=== PATIENT | male | born 1975 | race Caucasian/White ===

== ENCOUNTER → 2016-09-18 | Outpatient (CLI) | payer BC ==
--- NOTE | ~2016-09-18 | CR63 ---
[facility] A Service of [facility] & [facility] RADIOLOGY TEXT RESULTS PATIENT: LUCIAN MCDANIEL LOCATION: [facility] : 77 UNIT #: [id number] AGE: [address]: Cynthia Gatica MD SEX: M ORDER DR: [id number] [facility] [address] [place], [place] [address] [id number] O MR#: [id number] Acc #: [id number] NAME: LUCIAN MCDANIEL : 1975 SEX: M STUDY DATE/TIME: 09/18/2016 9:42 UNIT: [facility] ROOM: STUDY DESCRIPTION: CR Chest 2 View Attending Physician: Cynthia Gatica M.D. Referring Physician: Cynthia Gatica M.D. Ordering Physician: Cynthia Gatica M.D. Primary Care Physician: Cynthia Gatica M.D. MEDICAL IMAGING REPORT This report is preliminary unless electronic signature is present EXAM PA and lateral chest radiograph, 09/18/2016 COMPARISON History supplied cough and congestion 3 months. History of COPD. FINDINGS PA and lateral views of the chest are obtained. There are no previous studies for comparison. The heart size is normal and the lungs appear clear. CONCLUSION No active disease. Dictated by... Cedric Kan M.D. THIS IS AN ELECTRONICALLY VERIFIED REPORT Cedric Kan M.D. at 09/18/2016 5:06 PM Nidhi TD: 09/18/2016 15:16 JOB #: [id number] MEDICAL IMAGING REPORT COPY
== END | disposition home or self-care (01) ==
LOC: CRAD 09:36
DX: J44.9 Chronic obstructive pulmonary disease, unspecified (principal)
CPT/HCPCS: 71020